=== PATIENT | female | born 1990 | race Caucasian/White ===

== ENCOUNTER → 2019-01-05 | Outpatient (CLI) | payer OTHER ==
--- NOTE | 2019-01-05 15:56 | US ---
EXAMINATION TYPE: Transabdominal DATE OF EXAM: 01/05/2019 3:03 PM COMPARISON: none CLINICAL HISTORY: Z36 Confirm dates and viability. EXAM PERFORMED: Transabdominal (TA) EXAM MEASUREMENTS: GESTATIONAL AGE / DATING Physician Established: Not yet established Dates by LMP: (11 weeks/2 days) EDC: 07/25/2019 per patient from clinic Dates by First Scan: No previous here. Dates by Current Scan for: (11 weeks/3 days) EDC: 07/24/2019 MATERNAL ANATOMY Uterus: 10.7 x 7.7 x 6.7cm Right Ovary: 3.4 x 1.9 x 2.4cm Left Ovary: 2.3 x 2.3 x 2.6cm Post CDS / Adnexa: wnl Presence of free fluid: no Presence of corpus luteal cyst: no identified as simple ovarian cyst seen in right ovary = 2.2 x 1.4 x 1.4cm and complex cyst seen in left ovary = 1.7 x 1.7 x 2.3cmm , however, cysts do not have detecta ble color flow in periphery. Presence of subchorionic bleed: no GESTATION / SURVEY CRL: 4.6cm (11 weeks/3 days) Yolk Sac (normal less than 6mm): 3.4mm Heart Rate: 162 bpm Rhythm: Normal IUP: single Date of LMP: unsure Beta HcG (if available): NA Single, live IUP,11 weeks/3 days, EDC: 07/24/2019, HR 162bpm. IMPRESSION: Single viable intrauterine patency corresponding to ultrasound age of 11 weeks 3 days with estimated date of delivery 07/24/2019
== END | disposition home or self-care (01) ==
LOC: RADUSWWP 14:44
PROVIDERS: ATTEND Obstetrics & Gynecology
DX: Z36.9 Encounter for antenatal screening, unspecified (principal); Z3A.11 11 weeks gestation of pregnancy
CPT/HCPCS: 76801

== ENCOUNTER 2019-07-21 02:45 | Inpatient (IN) | payer OTHER ==
[2019-07-21] MEDS ORDERED: CARBOPROST TROMETHAMINE 250 MCG/ML 1 ML AMP IM PRN (03:48)
[2019-07-21] MEDS ORDERED: LIDOCAINE 0.5% (PF) 5 MG/ML (50 ML SDV) SQ PRN (03:48)
[2019-07-21] MEDS ORDERED: OXYTOCIN 10 UNIT/ML 1 ML VIAL IM PRN (03:48)
[2019-07-21] MEDS ORDERED: TERBUTALINE 1 MG/ML VIAL SQ PRN (03:48)
[2019-07-21] MEDS ORDERED: METHYLERGONOVINE 0.2 MG/ML 1 ML AMP IM PRN (03:48)
[2019-07-21] MEDS: LACTATED RINGERS 1,000 ML IV SCH ×4 (04:01→21:15)
[2019-07-21 04:13] LABS: Basophils # (A) 0.1 k/uL (0-0.2); Basophils % (A) 1 %; Eosinophils % (A) 1 %; HCT 34.1 % (34.0-46.0); HGB 10.5 gm/dL (11.4-16.0); Hypochromasia Slight; Lymphocytes # (A) 1.9 k/uL (1.0-4.8); Lymphocytes % (A) 24 %; MCH 22.6 pg (25.0-35.0); MCHC 30.7 g/dL (31.0-37.0); MCV 73.6 fL (80.0-100.0); Mean Platelet Volume 7.8; Microcytosis Slight; Monocytes # (A) 0.5 k/uL (0-1.0); Monocytes % (A) 6 %; Neutrophils # (A) 5.1 k/uL (1.3-7.7); Neutrophils % (A) 66 %; Platelet Count 275 k/uL (150-450); Poikilocytosis Slight; RBC 4.64 m/uL (3.80-5.40); WBC 7.7 k/uL (3.8-10.6)
[2019-07-21] MEDS ORDERED: CITRIC ACID-SODIUM CITRATE 15 ML CUP PO ONE (04:38)
[2019-07-21] MEDS ORDERED: GLYCOPYRROLATE 0.2 MG/ML 2 ML VIAL ONE (04:44)
[2019-07-21] MEDS ORDERED: PROPOFOL 10 MG/ML 20 ML VIAL IV ONE (04:44)
[2019-07-21] MEDS ORDERED: OXYTOCIN 10 UNIT/ML 1 ML VIAL ONE (04:44)
[2019-07-21] MEDS ORDERED: fentaNYL (PF) 50 MCG/ML 2 ML AMP ONE (04:44)
[2019-07-21] MEDS ORDERED: ONDANSETRON 4 MG/2 ML VIAL ONE (04:44)
[2019-07-21] MEDS ORDERED: SUCCINYLCHOLINE CHLORIDE 100 MG/5 ML SYR IV ONE (04:44)
[2019-07-21] MEDS ORDERED: KETOROLAC 30 MG/ML 1 ML VIAL ONE (04:44)
[2019-07-21] MEDS ORDERED: LANOLIN CREAM 5 GM TUBE TOPICAL PRN (05:13)
[2019-07-21] MEDS ORDERED: ONDANSETRON 4 MG/2 ML VIAL IVP PRN (05:13)
[2019-07-21] MEDS ORDERED: diphenhydrAMINE 25 MG CAP PO PRN (05:13)
[2019-07-21] MEDS ORDERED: METOCLOPRAMIDE 5 MG/ML 2 ML VIAL IVP PRN (05:13)
[2019-07-21] MEDS ORDERED: diphenhydrAMINE 50 MG/ML 1 ML VIAL IVP PRN ×2 (05:13)
[2019-07-21] MEDS ORDERED: ACETAMINOPHEN TAB 325 MG TAB PO PRN (05:13)
[2019-07-21] MEDS ORDERED: HYDROcodone/APAP 7.5-325MG 1 EACH TAB PO PRN ×2 (05:13→23:52)
[2019-07-21] MEDS ORDERED: NALOXONE 0.4 MG/ML 1 ML VIAL IV PRN (05:13)
[2019-07-21] MEDS ORDERED: diphenhydrAMINE 50 MG CAP PO PRN (05:13)
[2019-07-21] MEDS ORDERED: ZOLPIDEM 5 MG TAB PO PRN (05:13)
--- NOTE | 2019-07-21 05:19 | P.HPOB ---
History of Present Illness H&P Date: 07/21/19 Chief Complaint: Labor 29-year-old presents at 39 weeks and 4 days complaining of contractions. Her cervix is 2 cm in triage and changed to 4 cm, 70% effaced, and -2 station. She is jose every 2-3 minutes. heart tones were 110 with moderate variability and accelerations. When she was admitted to labor room and IV was started heart tones were 100 with moderate variability and accelerations for a few decelerations mirroring the contractions down to the 90s with good return to baseline. Review of Systems All systems: negative Constitutional: Denies chills, Denies fever Eyes: denies blurred vision, denies pain Ears, nose, mouth and throat: Denies headache, Denies sore throat Cardiovascular: Denies chest pain, Denies shortness of breath Respiratory: Denies cough Gastrointestinal: Denies abdominal pain, Denies diarrhea, Denies nausea, Denies vomiting Genitourinary: Denies dysuria, Denies hematuria Musculoskeletal: Denies myalgias Integumentary: Denies pruritus, Denies rash Neurological: Denies numbness, Denies weakness Psychiatric: Denies anxiety, Denies depression Endocrine: Denies fatigue, Denies weight change Past Medical History Past Medical History: No Reported History Additional Past Medical History / Comment(s): Obstetric history: This is her first . She's had care with me since the first trimester. History of Any Multi-Drug Resistant Organisms: None Reported Additional Past Surgical History / Comment(s): gastric sleeve, rectoplasty as Past Anesthesia/Blood Transfusion Reactions: No Reported Reaction Past Psychological History: Anxiety, Depression Additional Psychological History / Comment(s): not currently medicated Smoking Status: Former smoker Past Alcohol Use History: None Reported Past Drug Use History: None Reported - Past Family History Mother Family Medical History: No Reported History Medications and Allergies Home Medications Medication Instructions Recorded Confirmed Type Pnv,Calcium 72/Iron/Folic Acid 1 each PO DAILY 07/21/19 07/21/19 History [ Plus Tablet] Allergies Allergy/AdvReac Type Severity Reaction Status Date / Time No Known Allergies Allergy Verified 07/21/19 03:47 Exam Osteopathic Statement: *. No significant issues noted on an osteopathic structural exam other than those noted in the History and Physical/Consult. Vital Signs Temp Pulse Resp BP 07/21/19 04:05 97.0 F L 73 18 118/68 Intake and Output 07/20/19 07/20/19 07/21/19 14:59 22:59 06:59 Other: Weight 78.925 kg Heart: Regular rate and rhythm Lungs: Clear to auscultation bilaterally Abdomen: Soft, nontender Extremities: Negative Homans sign Results Result Diagrams: 07/21/19 04:00 Abnormal Lab Results - Last 24 Hours (Table) 07/21/19 Range/Units 04:00 Hgb 10.5 L (11.4-16.0) gm/dL MCV 73.6 L (80.0-100.0) fL MCH 22.6 L (25.0-35.0) pg MCHC 30.7 L (31.0-37.0) g/dL RDW 16.0 H (11.5-15.5) % Assessment and Plan (1) Normal labor Current Visit: Yes Status: Acute Code(s): O80 - ENCOUNTER FOR FULL-TERM U NCOMPLICATED DELIVERY; Z37.9 - OUTCOME OF DELIVERY, UNSPECIFIED SNOMED Code(s): 39545028 Plan: 1. Admit to family place 2. Expectant management 3. Anticipate normal vaginal delivery
--- NOTE | 2019-07-21 05:24 | P.OP ---
Date of Procedure: 07/21/19 Preoperative Diagnosis: 1. at 39 weeks 4 days 2. bradycardia Postoperative Diagnosis: 1. at 39 weeks 4 days 2. bradycardia Procedure(s) Performed: Primary low transverse Anesthesia: RAJAN Surgeon: Saira Cole Asl Interpreter #1: Oma Miles Estimated Blood Loss (ml): 500 IV fluids (ml): 800 Urine output (ml): 100 Pathology: none sent Condition: stable Disposition: floor Indications for Procedure: 29-year-old presented at 39 weeks and 4 days in active labor. Her cervix was 2 cm in triage and then a change to 4 cm, 70% effaced, -2 station. She is jose every 2-3 minutes. heart tones were 110 with moderate variability and accelerations. When she went to her room and an IV was started heart tones were 100s with moderate variability and accelerations were also with some early decelerations mirroring contractions down to the 90s with good return to baseline. When I presented I did note that her heart tones were 85-90 so I broke her water and place a scalp lead. heart tones did not improve this position changes, IV fluids or oxygen. Informed consent was obtained and section was called. Operative Findings: Viable male, Apgars 8, 9, weight 5 lbs. 7 oz. normal uterus, tubes, ovaries. Description of Procedure: Patient was taken to the operating room where she was prepped and draped in normal sterile fashion in dorsal supine position with a leftward tilt. General anesthesia was obtained without difficulty. Pfannenstiel skin incision was made the scalpel and carried through to the underlying layer of fascia with the scalpel. Fascia was incised in midline and carried bilaterally with the Copeland scissors. The superior aspect of the fascial incision was grasped with Caryn clamps elevated and the underlying rectus muscles dissected off with the Copeland's. Attention was then turned to inferior aspect of same incision which in a similar fashion was grasped tented up and the underlying rectus muscles dissected off with the Copeland's. The rectus muscles were the midline and the peritoneum was identified tented up and entered sharply with the scalpel. The incision was extended superiorly and inferiorly with good visualization of the bladder. The bladder blade was inserted and a low transverse incision was then made on the uterus with the scalpel. This was carried bilaterally and digital manner. Infant's head delivered atraumatically, nose and mouth bulb suctioned, cord clamped and cut, handed off to waiting nurses. Apgars 8,9, weight 5 lbs. 7 oz. Placenta delivered manually, intact with three-vessel cord. The uterus is exteriorized and cleared of all clots and debris. The uterine incision was closed with 0 Vicryl in a running locked fashion. Second layer of the same sutures used in imbricating fashion to obtain excellent hemostasis. Both ovaries and tubes appeared normal. The uterus was placed back into the abdomen. The fascia was reapproximated using 0 Vicryl in a running fashion. The subcutaneous tissues closed with 3-0 Vicryl running fashion. The skin was closed breanne. Patient tolerated the procedure well, sponge and instrument counts were correct times 2 and she was taken to the recovery room in stable condition.
--- NOTE | 2019-07-21 05:57 | XR ---
EXAMINATION TYPE: XR abdomen 1V DATE OF EXAM: 07/21/2019 COMPARISON: NONE HISTORY: Possible foreign body TECHNIQUE: 2 views supine FINDINGS: There are skin breanne over the lower anterior abdomen. There is no sign of intestinal obst ruction or pneumoperitoneum. Fecal pattern is normal. There is no sign of a radiopaque foreign body i n the abdomen. There are surgical clips over the stomach. IMPRESSION: Nonacute abdomen. No evidence of foreign body.
[2019-07-21] MEDS: OXYTOCIN 30 UNITS/500 ML NS 30 UNIT in SALINE 1 500ML.BAG IV SCH (06:29)
[2019-07-21] MEDS: KETOROLAC 30 MG/ML 1 ML VIAL IVP PRN ×2 (11:05→17:52)
[2019-07-21] MEDS: SENNOSIDES-DOCUSATE SODIUM 1 EACH TAB PO SCH ×2 (13:29→22:49)
[2019-07-21] MEDS ORDERED: MEASLES-MUMPS-RUBELLA VACC/PF 12,500 UNIT/0.5 ML VIAL SQ ONE (13:33)
[2019-07-22] MEDS: HYDROcodone/APAP 5-325MG 1 EACH TAB PO PRN ×4 (00:03→18:28)
[2019-07-22] MEDS: OXYTOCIN 30 UNITS/500 ML NS 30 UNIT in SALINE 1 500ML.BAG IV SCH (06:56)
[2019-07-22] MEDS: LACTATED RINGERS 1,000 ML IV SCH ×2 (06:56→16:48)
[2019-07-22 07:12] LABS: Basophils % (A) 0 %; Eosinophils % (A) 0 %; HCT 26.5 % (34.0-46.0); Hypochromasia Slight; Lymphocytes # (A) 1.5 k/uL (1.0-4.8); Lymphocytes % (A) 14 %; MCH 23.1 pg (25.0-35.0); MCHC 31.5 g/dL (31.0-37.0); MCV 73.2 fL (80.0-100.0); Mean Platelet Volume 7.2; Microcytosis Moderate; Monocytes # (A) 0.4 k/uL (0-1.0); Monocytes % (A) 4 %; Neutrophils # (A) 8.3 k/uL (1.3-7.7); Neutrophils % (A) 80 %; Platelet Count 236 k/uL (150-450); RBC 3.62 m/uL (3.80-5.40); RDW 15.9 % (11.5-15.5); WBC 10.4 k/uL (3.8-10.6)
[2019-07-22 07:16] LABS: HGB 8.4 gm/dL (11.4-16.0)
[2019-07-22] MEDS: SENNOSIDES-DOCUSATE SODIUM 1 EACH TAB PO SCH ×2 (09:56→20:40)
--- NOTE | 2019-07-22 12:25 | P.PNOBGPC ---
Subjective - Subjective Principal diagnosis: Status post primary low transverse postoperative day #1 Interval history: Status post primary low transverse postop day #1. Denies nausea, vomiting, chest pain, shortness of breath or calf pain. She is tolerating regular diet and passing flatus. A bleeding voiding without difficulty. Patient reports: Reports appetite normal, Reports voiding normally, Reports pain well controlled, Reports ambulating normally [place]: doing well Objective - Vital Signs Latest vital signs: Vital Signs Temp Pulse Resp BP Pulse Ox 07/22/19 08:00 98.5 F 71 16 134/76 100 07/22/19 04:00 98.5 F 81 14 114/60 100 07/22/19 00:00 98.5 F 77 16 123/59 97 07/21/19 20:00 98.7 F 88 16 118/72 98 07/21/19 16:00 97.7 F 80 16 120/87 99 Intake and Output 07/21/19 07/22/19 07/22/19 22:59 06:59 14:59 Output Total 1400 Balance -1400 Output: Urine 1400 Other: # Voids 1 1 2 - Exam Lungs: bilateral: normal Chest: Normal S1, Normal S2 Extremities: Present: normal Abdomen: Present: normal appearance, soft. Absent: distention, tenderness Incision: Present: normal, dry, intact Uterus: Present: normal, firm - Labs Labs: Abnormal Lab Results - Last 24 Hours (Table) 07/22/19 Range/Units 06:47 RBC 3.62 L (3.80-5.40) m/uL Hgb 8.4 L D (11.4-16.0) gm/dL Hct 26.5 L (34.0-46.0) % MCV 73.2 L (80.0-100.0) fL MCH 23.1 L (25.0-35.0) pg RDW 15.9 H (11.5-15.5) % Neutrophils # 8.3 H (1.3-7.7) k/uL Assessment and Plan (1) Normal labor Current Visit: Yes Status: Resolved Code(s): O80 - ENCOUNTER FOR FULL-TERM UNCOMPLICATED DELIVERY; Z37.9 - OUTCOME OF DELIVERY, UNSPECIFIED SNOMED Code(s): 08905404 (2) Status post primary low transverse section Current Visit: Yes Status: Acute Code(s): Z98.891 - HISTORY OF UTERINE SCAR FROM PREVIOUS SURGERY SNOMED Code(s): 462384467 Plan: 1. Increase ambulation 2. Continue pain control 3. Continue postoperative care
--- NOTE | 2019-07-22 12:47 | P.MSEPDOC ---
Presenting Problems - Arrival Data Date of Arrival on Unit: 07/21/19 Time of Arrival on Unit: 03:49 Mode of Transport: Stretcher - Complaint OB-Reason for Admission/Chief Complaint: Possible Onset of Labor Medical History - Information : 1 Para: 0 Term: 0 : 0 Abortions: Spontaneous or Elective: 0 Number of Living Children: 0 - Gestational Age Gestational Age by LIAT (wks/days): 39 Weeks and 4 Days Review of Systems - Review of Systems Constitutional: No problems Breast: No problems ENT: No problems Cardiovascular: No problems Respiratory: No problems Gastrointestinal: No problems Genitourinary: No problems Musculoskeletal: No problems Neurological: No problems Skin: No problems Vital Signs - Temperature Temperature: 98.5 F Temperature Source: Axillary - Pulse Right Pulse Rate: 71 Pulse Assessment Method: Pulse Oximetry - Respirations Respiratory Rate: 16 O2 Sat by Pulse Oximetry: 100 - Blood Pressure Right Arm Blood Pressure: 134/76 Blood Pressure Mean: 95 Blood Pressure Source: Automatic Cuff Medical Screen Scoring (Pre) - Cervical Exam Dilation: 1-3 cm = 1 Membranes: Intact - Uterine Contractions Frequency: > or = 36 weeks =2 Duration: > 40 seconds = 2 Intensity: Contraction palpated strong = 1 - Maternal Vital Signs Maternal Temperature: N/A Maternal Blood Pressure: N/A Signs of Preeclampsia: N/A Maternal Respirations: N/A - Maternal Trauma Maternal Trauma: N/A - Assessment - Baby A Baseline FHR: 115 Heart Rate - NICHD Category: Category I (Normal) = 0 - Total Score - Baby A Total Score - Baby A: 6 - Total Score - Baby B Total Score - Baby B: 6 - Total Score - Baby C Total Score - Baby C: 6 - Level of Risk - Baby A Level of Risk - Baby A: Medium (6-9) - Level of Risk - Baby B Level of Risk - Baby B: Medium (6-9) - Level of Risk - Baby C Level of Risk - Baby C: Medium (6-9) Physician Notification (Pre) - Physician Notified Physician Notified Date: 07/21/19 Physician Notified Time: 03:49 - Notification Comment Comment: Reported on pts c/o pain, possible cntrx. Reported on FHTs, low baseline, cntrx pattern, pain, SVE, vitals. Orders to admit, start IV, may have stadol or epidural with reassuring fhts, call with any needs Disposition - Disposition OB Disposition: Admit Transferred to:: st 6 I agree with the RN Medical Screening Exam: Yes Risk & Benefit of care provided described in d/c instruction: Yes Diagnosis: ENCOUNTER FOR FULL-TERM UNCOMPLICATED DELIVERY
[2019-07-22] MEDS: IBUPROFEN 600 MG TAB PO PRN ×2 (15:07→23:48)
--- NOTE | 2019-07-23 06:28 | P.PNOBGPC ---
Subjective - Subjective Patient reports: Reports appetite normal, Reports voiding normally, Reports pain well controlled, Reports ambulating normally : doing well Objective - Vital Signs Latest vital signs: Vital Signs Temp Pulse Resp BP Pulse Ox 07/23/19 00:00 98.5 F 83 16 127/70 97 07/22/19 16:00 98.1 F 90 16 123/72 97 07/22/19 12:47 98.5 F 71 16 134/76 100 07/22/19 08:00 98.5 F 71 16 134/76 100 Intake and Output 07/22/19 07/22/19 07/23/19 14:59 22:59 06:59 Other: # Voids 2 - Exam Lungs: bilateral: normal Chest: Normal S1, Normal S2 Extremities: Present: normal Abdomen: Present: normal appearance, soft. Absent: distention, tenderness Incision: Present: normal, dry, intact Uterus: Present: normal, firm - Labs Labs: Abnormal Lab Results - Last 24 Hours (Table) 07/22/19 Range/Units 06:47 RBC 3.62 L (3.80-5.40) m/uL Hgb 8.4 L D (11.4-16.0) gm/dL Hct 26.5 L (34.0-46.0) % MCV 73.2 L (80.0-100.0) fL MCH 23.1 L (25.0-35.0) pg RDW 15.9 H (11.5-15.5) % Neutrophils # 8.3 H (1.3-7.7) k/uL Assessment and Plan Assessment: Postoperative day #2. Patient is resting without new complaints. Vital signs are stable and she is afebrile. Her incision is intact and dry. CBC yesterday showed her hemoglobin to be 8.4 and therefore I am going to start her on some iron. Plan today is to continue routine postoperative care, encourage ambulation, and iron therapy. (1) Status post primary low transverse section Current Visit: Yes Status: Acute Code(s): Z98.891 - HISTORY OF UTERINE SCAR FROM PREVIOUS SURGERY SNOMED Code(s): 735809901
[2019-07-23] MEDS: HYDROcodone/APAP 5-325MG 1 EACH TAB PO PRN ×2 (06:47→15:37)
[2019-07-23] MEDS: SENNOSIDES-DOCUSATE SODIUM 1 EACH TAB PO SCH ×2 (07:59→22:39)
[2019-07-23] MEDS: IRON AG/C/B12/CA/SUC.ACID/STOM 1 EACH TAB PO SCH (07:59)
[2019-07-23] MEDS: IBUPROFEN 600 MG TAB PO PRN ×2 (10:23→22:39)
--- NOTE | 2019-07-24 01:21 | US ---
EXAMINATION TYPE: US venous doppler duplex LE BI DATE OF EXAM: 07/24/2019 12:04 AM COMPARISON: NONE CLINICAL HISTORY: rule out DVT - calf pain. Right leg calf pain and slight swelling, no h/o dvt, post 2 days SIDE PERFORMED: Bilateral TECHNIQUE: The lower extremity deep venous system is examined utilizing real time linear array sonog estela with graded compression, doppler sonography and color-flow sonography. VESSELS IMAGED: External Iliac Vein (EIV) Common Femoral Vein Deep Femoral Vein Greater Saphenous Vein * Femoral Vein Popliteal Vein Small Saphenous Vein * Proximal Calf Veins (* superficial vessels) Right Leg: Appears negative for DVT Left Leg: Appears negative for DVT IMPRESSION: Normal exam. No evidence of deep venous thrombosis in both legs.
--- NOTE | 2019-07-24 07:07 | P.PNOBGPC ---
Subjective - Subjective Patient reports: Reports appetite normal, Reports voiding normally, Reports pain well controlled, Reports ambulating normally : doing well Objective - Vital Signs Latest vital signs: Vital Signs Temp Pulse Resp BP Pulse Ox 07/24/19 00:00 98.1 F 73 18 129/74 99 07/23/19 15:39 98.4 F 69 18 120/68 98 07/23/19 07:41 98.1 F 69 17 123/72 98 - Exam Lungs: bilateral: normal Chest: Normal S1, Normal S2 Extremities: Present: normal Abdomen: Present: normal appearance, soft. Absent: distention, tenderness Incision: Present: normal, dry, intact Uterus: Present: normal, firm Assessment and Plan Assessment: Postoperative day #3. This patient is resting. Last evening she was complaining of some unilateral calf pain (right) and tenderness therefore I did order bilateral lower extremity Dopplers which were normal. There is no evidence of a DVT. Patient is taking iron. Patient's baby is still in special care therefore she wishes to stay until tomorrow. Plan today is to continue routine postoperative care and will need to discharge home tomorrow (1) Status post primary low transverse section Current Visit: Yes Status: Acute Code(s): Z98.891 - HISTORY OF UTERINE SCAR FROM PREVIOUS SURGERY SNOMED Code(s): 584714352
[2019-07-24] MEDS: SENNOSIDES-DOCUSATE SODIUM 1 EACH TAB PO SCH ×2 (08:51→20:14)
[2019-07-24] MEDS: IBUPROFEN 600 MG TAB PO PRN ×2 (08:51→21:04)
[2019-07-24] MEDS: IRON AG/C/B12/CA/SUC.ACID/STOM 1 EACH TAB PO SCH (09:37)
[2019-07-24] MEDS: HYDROcodone/APAP 5-325MG 1 EACH TAB PO PRN ×2 (17:10→23:04)
[2019-07-25] MEDS: IBUPROFEN 600 MG TAB PO PRN (07:53)
[2019-07-25] MEDS: IRON AG/C/B12/CA/SUC.ACID/STOM 1 EACH TAB PO SCH (07:54)
[2019-07-25 08:18] VITALS: BP 118/87; PULSE 64; RESP 16; TEMP 98
--- NOTE | 2019-07-25 08:33 | P.DS ---
Providers Date of admission: 07/21/19 03:44 Expected date of discharge: 07/25/19 Attending physician: Saira Cole Primary care physician: Stated None - Discharge Diagnosis(es) (1) Normal labor Current Visit: Yes Status: Resolved (2) Status post primary low transverse section Current Visit: Yes Status: Acute Hospital Course: Patient presented with an active labor. She underwent a primary low transverse for bradycardia. course was uncomplicated. She denies nausea, vomiting, chest pain, shortness of breath or calf pain. She'll be discharged home postoperative day #4 in stable condition to follow-up with me in one week. Plan - Discharge Summary New Discharge Prescriptions: New Ibuprofen [Motrin] 600 mg PO Q6HR PRN #30 tab PRN Reason: Mild Pain Or Fever >= 100.5 HYDROcodone/APAP 7.5-325MG [[place] 7.5-325] 1 each PO Q6H PRN #12 tab PRN Reason: Pain No Action Pnv,Calcium 72/Iron/Folic Acid [ Plus Tablet] 1 each PO DAILY Discharge Medication List Pnv,Calcium 72/Iron/Folic Acid [ Plus Tablet] 1 each PO DAILY 07/21/19 [History] HYDROcodone/APAP 7.5-325MG [[place] 7.5-325] 1 each PO Q6H PRN #12 tab 07/25/19 [Rx] Ibuprofen [Motrin] 600 mg PO Q6HR PRN #30 tab 07/25/19 [Rx] Follow up Appointment(s)/Referral(s): Saira Cole DO [Doctor of Osteopathic Medicine] - 1 Week Discharge Disposition: HOME SELF-CARE
[2019-07-25] MEDS: SENNOSIDES-DOCUSATE SODIUM 1 EACH TAB PO SCH (10:15)
== END 2019-07-25 10:30 | disposition home or self-care (01) | DRG 788 ==
LOC: FBPOP 02:45 → 4FBP 03:44
PROVIDERS: ADMIT Obstetrics & Gynecology; ATTEND Obstetrics & Gynecology
PROC: 10D00Z1 Extraction of Products of Conception, Low, Open Approach (ICD-10-PCS; principal; 2019-07-21 05:00)
DX: O76 Abnormality in fetal heart rate and rhythm complicating labor and delivery (principal); Z3A.39 39 weeks gestation of pregnancy; O36.8330 Maternal care for abnormalities of the fetal heart rate or rhythm, third trimester, not applicable or unspecified; Z37.0 Single live birth; Z87.891 Personal history of nicotine dependence
CPT/HCPCS: 74018; 85025; 86850; 86900; 86901; 90707; 93970